=== PATIENT | male | born 1945 | race Caucasian/White ===

== ENCOUNTER → 2016-11-04 | Outpatient (CLI) | payer OTHER ==
[~2016-11-04] MED LIST: ASPIRIN81 M2 PO; LISINOPRIL20 MG PO; NEXIUM PO; NORVASC PO; PLAVIX PO; TOPROL XL PO
--- NOTE | ~2016-11-04 | CT55 ---
[facility] A Service of [facility] RADIOLOGY TEXT RESULTS PATIENT: URSULA REEDER LOCATION: [facility] : 41 UNIT #: [id number] AGE: [address]: Tae Turpin MD SEX: M ORDER DR: [id number] [facility] [address] [place], [place] [address] [id number] O MR#: [id number] [facility] #: [id number] NAME: URSULA REEDER : 1945 SEX: M STUDY DATE/TIME: 11/04/2016 10:24 UNIT: [facility] ROOM: STUDY DESCRIPTION: CT Chest W Con Attending Physician: Tae Turpin M.D., Ph.D. Referring Physician: Tae Turpin M.D., Ph.D. Ordering Physician: Tae Turpin M.D., Ph.D. Primary Care Physician: Hilda Pineda A.P.R.N. MEDICAL IMAGING REPORT This report is preliminary unless electronic signature is present EXAMINATION CT chest with contrast. DATE 11/04/2016 HISTORY Lung cancer diagnosed 3 years ago. Follow up. Observation for metastatic disease. Restaging. No current complaints. Additional history of hypertension and previous stroke. COMPARISON CT chest with contrast, 04/29/2016. TECHNIQUE This CT exam was performed with one or more of the following radiation dose reduction techniques: automatic exposure control, adjustment of mA and/or kV according to patient size, and iterative reconstruction. FINDINGS 1.5 x 1.3 cm noncalcified left lower lobe pulmonary nodule is roughly stable compared to 04/29/2016, where it measured 1.2 x 1.5 cm. On the more remote CT chest from 04/10/2015, it measured 1.2 x 1.4 cm. No new pulmonary nodules are identified. Severe emphysematous changes are present with fibrotic changes in the apices. Mediastinal adenopathy appears stable. Some of the adenopathy is coarsely calcified, others are not calcified. An indexed pre-carinal node measures 1 cm, and an indexed right hilar node measures 1.3 cm, each stable compared to prior. No new adenopathy is identified. No supraclavicular or axillary adenopathy is seen. No pericardial effusion or pleural effusion. Extremely dense calcific atherosclerotic changes are seen within the coronary arteries. The ascending thoracic aorta is ectatic at [facility]. [facility] A Service of [facility] & [facility] RADIOLOGY TEXT RESULTS PATIENT: URSULA REEDER LOCATION: [facility] : 41 UNIT #: [id number] AGE: [address]: Tae Turpin MD SEX: M ORDER DR: 3.8 cm. 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 No aortic dissection. Mild bilateral adrenal gland thickening without discrete nodularity, unchanged, likely on the basis of hyperplasia. Remainder included upper abdominal organs, otherwise, appear unremarkable. No suspicious osteolytic or osteoblastic lesions are identified. IMPRESSION 1. The 1.5 x 1.3 cm noncalcified left lower lobe pulmonary nodule, thought to represent the patient's known primary malignancy, is essentially stable since 04/29/2016, where it measured 1.5 x 1.2 cm. No new pulmonary nodules are seen. 2. Calcified and noncalcified mediastinal and right hilar lymph nodes are stable. 3. Advanced emphysema. No acute airspace disease. 4. Dense coronary artery calcifications. Correlate with cardiac history. 5. 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 Dictated by... Yaquelin Amaya M.D. THIS IS AN ELECTRONICALLY VERIFIED REPORT Yaquelin Amaya M.D. at 11/07/2016 7:33 AM AZEB/lee TD: 11/05/2016 16:11 JOB #: [id number] MEDICAL IMAGING REPORT Page 1 of 1 COPY
[2016-11-04 18:35] LABS: POC - CREATININE 1.06 mg/dL (0.64-1.27); POC - GFR >60.0 mL/min (>60)
== END | disposition home or self-care (01) ==
LOC: CCAT 09:22
PROVIDERS: Internal Medicine Hematology & Oncology
DX: C34.90 Malignant neoplasm of unspecified part of unspecified bronchus or lung (principal); R91.1 Solitary pulmonary nodule; J43.9 Emphysema, unspecified; I71.2 Thoracic aortic aneurysm, without rupture; I25.10 Atherosclerotic heart disease of native coronary artery without angina pectoris
CPT/HCPCS: 71260; 82565; Q9967